=== PATIENT | female | born 1975 | race Caucasian/White ===

== ENCOUNTER 2016-12-01 08:48 | Day surgery (SDC) | payer OTHER ==
[~2016-12-01] VITALS: Ht 170.2 cm; Wt 88.9 kg
[2016-12-01] MEDS ORDERED: ROCURONIUM 50 MG/5 ML VIAL IV ONE (09:35)
[2016-12-01] MEDS ORDERED: SUCCINYLCHOLINE CHLORIDE 200 MG/10 ML VIAL IVP ONE (09:35)
[2016-12-01] MEDS ORDERED: ONDANSETRON 4 MG/2 ML VIAL ONE (09:35)
[2016-12-01] MEDS ORDERED: NEOSTIGMINE 1:1000 10 MG/10 ML VIAL ONE (09:35)
[2016-12-01] MEDS ORDERED: GLYCOPYRROLATE 0.2 MG/ML VIAL ONE (09:35)
[2016-12-01] MEDS ORDERED: ETOMIDATE 20 MG/10 ML VIAL IVP ONE (09:35)
[2016-12-01] MEDS ORDERED: DESFLURANE 240 ML BTL INH ONE (09:35)
[2016-12-01] MEDS ORDERED: PHENYLEPHRINE 1% 15 ML BTL NS ONE (09:49)
[2016-12-01] MEDS ORDERED: LIDOCAINE/EPI MPF 1%1:200000 30 ML VIAL INJ ONE (09:49)
[2016-12-01] MEDS ORDERED: NEOMYCIN/POLYMYXIN/BACITRACIN OIN 15 GM TUBE TP ONE ×2 (09:49→10:08)
[2016-12-01] MEDS ORDERED: CLON0.5T PO (09:57)
[2016-12-01] MEDS ORDERED: LIOT25TA3 PO (09:57)
[2016-12-01] MEDS ORDERED: IBUP-1842 PO (09:57)
[2016-12-01] MEDS ORDERED: CITA-70 PO (09:57)
[2016-12-01] MEDS ORDERED: [UNRECOGNIZED DRUG - OTHER] (09:57)
[2016-12-01] MEDS ORDERED: PROMETHAZINE 25 MG/ML VIAL IVP PRN (10:10)
[2016-12-01] MEDS ORDERED: ACETAMIN/CODEINE 120/12MG-5ML 5 ML UDC PO PRN (10:10)
[2016-12-01] MEDS ORDERED: MEPERIDINE 50 MG/ML SYR IVP PRN (10:10)
[2016-12-01] MEDS ORDERED: guaiFENesin DM 200/20 MG-10 ML 10 ML UDC PO PRN (10:10)
[2016-12-01] MEDS ORDERED: fentaNYL 0.05 MG/ML VIAL ONE (10:45)
[2016-12-01] MEDS ORDERED: MIDAZOLAM 2 MG/2 ML VIAL ONE (10:45)
[2016-12-01] MEDS ORDERED: MORPHINE SULFATE 4 MG/ML SYR ONE (10:46)
[2016-12-01] MEDS ORDERED: DEXAMETHASONE 4 MG/ML VIAL ONE (10:46)
[2016-12-01] MEDS ORDERED: ceFAZolin 1,000 MG VIAL ONE (10:48)
[2016-12-01] MEDS ORDERED: MORPHINE SULFATE 2 MG/ML SYR IVP PRN (11:40)
[2016-12-01] MEDS ORDERED: MORPHINE SULFATE 4 MG/ML SYR IVP PRN ×2 (11:40)
[2016-12-01] MEDS ORDERED: MIDAZOLAM 2 MG/2 ML VIAL IV ONE (11:40)
[2016-12-01] MEDS ORDERED: METOCLOPRAMIDE 10 MG/2 ML INJ VIAL IVP PRN (11:40)
== END 2016-12-01 14:05 | disposition home or self-care (01) ==
LOC: MMU 08:48 → MDS 08:48
PROVIDERS: ATTEND Otolaryngology
DX: J34.2 Deviated nasal septum (principal); J34.3 Hypertrophy of nasal turbinates; E89.0 Postprocedural hypothyroidism; F32.9 Major depressive disorder, single episode, unspecified; F41.9 Anxiety disorder, unspecified; M19.90 Unspecified osteoarthritis, unspecified site; E03.9 Hypothyroidism, unspecified; Z72.89 Other problems related to lifestyle; Z83.3 Family history of diabetes mellitus; Z82.61 Family history of arthritis
CPT/HCPCS: 30140; 30520; 30999; J0330; J0690; J1100; J2001; J2250; J2270; J2405; J2710; J3010; J3490; J7120

== ENCOUNTER 2016-12-03 14:00 | Emergency (ER) | payer OTHER ==
[~2016-12-03] VITALS: Ht 170.2 cm; Wt 87.3 kg
[~2016-12-03 14:00] MED LIST: CITA-70 PO; CLON0.5T PO; IBUP-1842 PO; LIOT25TA3 PO; [UNRECOGNIZED DRUG - OTHER]
[2016-12-03 14:44] VITALS: BP 129/78
--- NOTE | 2016-12-03 14:59 | NUR ---
Patient ambulated to [facility] to be evaluated as fast track by Dr. Caballero. RN evaluating patient.
--- NOTE | 2016-12-03 15:01 | NUR ---
Dr. Caballero evaluating patient in [facility].
--- NOTE | 2016-12-03 16:06 | NUR ---
PATIENT IS A 41 YO FEMALE BIB FAMILY FOR LEFT ARM PAIN AFTER HAVING IV REMOVED FROM LEFT ARM. PATIENT IS WHEELCHAIR BOUND AND IN NO ACUTE DISTRESS. TO OVERFLOW 1 FOR EVAL.
[2016-12-03 17:08] VITALS: BP 113/80
--- NOTE | 2016-12-03 17:08 | NUR ---
Patient discharged with v/s stable. Written and verbal after care instructions given and explained. Patient verbalized understanding. Wheel Chair Assisted with to car. All questions addressed prior to discharge. Advised to follow up with PMD.
== END 2016-12-03 17:08 | disposition home or self-care (01) ==
LOC: MED 15:03
DX: M79.602 Pain in left arm (principal); I80.8 Phlebitis and thrombophlebitis of other sites; Z79.899 Other long term (current) drug therapy; Z88.8 Allergy status to other drugs, medicaments and biological substances
CPT/HCPCS: 93971; 99284

== ENCOUNTER 2020-12-16 13:32 | Emergency (ER) | payer OTHER ==
[~2020-12-16] VITALS: Ht 162.6 cm; Wt 117.9 kg
[~2020-12-16 13:32] MED LIST changes: -LIOT25TA3 PO; +LIOT25TA9 PO
[2020-12-16 13:45] VITALS: BP 143/95
[2020-12-16] MEDS ORDERED: NACL 0.9% 1,000 ML IV ONE ×2 (14:15→16:45)
[2020-12-16] MEDS ORDERED: ONDANSETRON 4 MG/2 ML VIAL IVP ONE (14:15)
[2020-12-16] MEDS ORDERED: MORPHINE SULFATE 4 MG/ML SYR IVP ONE (14:15)
[2020-12-16 14:44] LABS: BASOPHILS # (AUTO) 0.1 K/uL (0.00-0.22); BASOPHILS % (AUTO) 0.5 % (0.0-2.0); EOSINOPHILS # (AUTO) 0.2 K/uL (0-0.4); EOSINOPHILS % (AUTO) 1.6 % (0.0-4.0); HEMATOCRIT 38.5 % (36-48); HEMOGLOBIN 12.6 g/dL (12.0-16.0); LYMPHOCYTES # (AUTO) 1.5 K/uL (2.5-16.5); LYMPHOCYTES % (AUTO) 13.7 % (20.5-51.1); MEAN CORPUSCULAR HEMOGLOBIN 27 pg (27-31); MEAN CORPUSCULAR HGB CONC 33 g/dL (33-37); MEAN CORPUSCULAR VOLUME 81.7 fL (80-94); MONOCYTES # (AUTO) 0.8 K/uL (0.8-1.0); MONOCYTES % (AUTO) 7.3 % (1.7-9.3); NEUTROPHILS # (AUTO) 8.5 K/uL (1.8-7.7); NEUTROPHILS % (AUTO) 76.9 % (42.2-75.2); PLATELET COUNT (AUTO) 316 K/uL (140-450); RED BLOOD CELL COUNT(AUTO) 4.72 MIL/uL (4.20-5.40); RED CELL DISTRIBUTION WIDTH 14.6 % (11.6-13.7); WHITE BLOOD COUNT (AUTO) 11.1 K/uL (4.8-10.8)
[2020-12-16 14:59] LABS: ALBUMIN 3.6 g/dL (3.4-5.0); ANION GAP 11.5 (8-16); CARBON DIOXIDE 29.1 mmol/L (21-32); CREATININE 1.1 mg/dL (0.6-1.3); POTASSIUM 3.6 mmol/L (3.5-5.1); TOTAL BILIRUBIN 0.3 mg/dL (0.0-1.0)
[2020-12-16] MEDS ORDERED: KETOROLAC 15 MG/ML VIAL IVP ONE (16:45)
[2020-12-16] MEDS ORDERED: ACET-8386 PO ×2 (18:50→18:52)
[2020-12-16] MEDS ORDERED: MIRABULK PO (18:50)
[2020-12-16] MEDS ORDERED: METO-485 PO (18:50)
[2020-12-16 19:08] VITALS: BP 121/76
== END 2020-12-16 19:07 | disposition home or self-care (01) ==
LOC: MED 13:32
DX: R51.9 Headache, unspecified (principal); Z20.822 Contact with and (suspected) exposure to COVID-19; M79.10 Myalgia, unspecified site; R10.9 Unspecified abdominal pain; E07.9 Disorder of thyroid, unspecified; Z90.49 Acquired absence of other specified parts of digestive tract; Z98.890 Other specified postprocedural states; Z85.810 Personal history of malignant neoplasm of tongue; Z85.850 Personal history of malignant neoplasm of thyroid; Z79.899 Other long term (current) drug therapy; Z88.5 Allergy status to narcotic agent; Z88.8 Allergy status to other drugs, medicaments and biological substances
CPT/HCPCS: 36415; 70450; 74021; 80053; 83690; 84703; 85025; 87804; 96361; 96374; 96375; 99285; J1885; J2270; J2405; J7030; U0003